=== PATIENT | male | born 1980 | race Two or more races ===

== ENCOUNTER 2016-05-01 12:49 | Emergency (ER) | payer OTHER ==
[2016-05-01 13:02] VITALS: BP 129/73; PULSE 105; TEMP 98.4; BMI 30.4
--- NOTE | 2016-05-01 15:36 | PDOC ---
History of Present Illness - General Chief Complaint: Pain Stated Complaint: INSOMNIA Time Seen by Provider: 05/01/16 14:11 History Source: Patient Exam Limitations: No Limitations - History of Present Illness Initial Comments: Chief complaint: Insomnia History of present illness: Patient is a 35-year-old male with a history of asthma, anxiety/depression here today complaining of difficulty sleeping sometimes difficulty falling asleep and staying asleep will at times during the Middle night and cannot get back to sleep for approximately one year. He reports that he had seen somebody for mental health for anxiety depressions and panic attacks while he was living in [place] and was given a prescription for Zoloft 25 mg and hydroxyzine for anxiety and panic attacks patient however has not started on any of this medication. Patient reports that he is fearful about taking meds and really did not want to start on rereading potential side effects. Patient reports that he feels anxious on edge, with decreased concentration irritability on most days. Patient also reports having a history of having panic attacks with chest tightness choking sensation shaking and sweating and feeling of impending doom. Patient denies any previous psychiatric hospitalizations. He reports that he first saw mental health only once in [place] and was supposed to go back for counseling but did not. Patient reports that he also feels sad on most days with decreased energy and anhedonia for one ear. He denies any suicidal ideations or any suicide attempts. Patient denies any symptoms of psychosis no auditory or visual hallucinations. Patient denies any drug or alcohol use except for smoking weed a few weeks ago that made him feel more anxious. He is also requesting a pump for his asthma needs albuterol that he has been using 3 times a day recently. He is asking for a pump that he can use that will decrease the need for him to use albuterol as much. Timing/Duration: other (intermittent for one year) Severity: moderate Associated Symptoms: anxiety, impaired concentration (intermittent for one year) , insomnia Past History - Past Medical History Allergies/Adverse Reactions: Allergies No Known Allergies Allergy (Verified 05/01/16 12:56) Home Medications: Ambulatory Orders Albuterol Sulfate Inhaler - [Ventolin HFA Inhaler -] 2 inh PO Q4H PRN #1 inh 03/07 Fluticasone/Salmeterol [Advair Hfa 115-21 Mcg Inhaler] 1 inh PO BID #1 inhaler MDD w 05/01/16 Psychosocial History: Yes: anxiety, depression, panic attacks - Family History Significant Family History: Yes: asthma - Social History Smoking Status: Current every day smoker Number of Cigarettes Per Day: 7 Drug Use: cocaine (years ago ), marijuana (few weeks ago ) *Review of Systems - Review of Systems Able to Perform ROS?: Yes Constitutional: No: Symptoms Reported HEENTM: No: Symptoms Reported Respiratory: Yes: Shortness of Breath, Wheezing (intermittent ) Cardiac (ROS): Yes: Chest Tightness (intermittent none today). No: Chest Pain, Lightheadedness, Palpitations (today ) ABD/GI: No: Symptoms Reported : No: Symptoms Reported Musculoskeletal: No: Symptoms Reported Integumentary: No: Symptoms Reported Neurological: No: Symptoms reported Psychiatric: Yes: Anxiety, Depression, Stressors, Sleep Pattern Change (for one year ) *Physical Exam - Vital Signs Last Vital Signs Temp Pulse Resp BP Pulse Ox 98.4 F 105 H 20 129/73 98 05/01/16 12:52 05/01/16 12:52 05/01/16 12:52 05/01/16 12:52 05/01/16 12:52 - Physical Exam General Appearance: Yes: Appropriately Dressed HEENT: positive: Normal ENT Inspection Neck: negative: Lymphadenopathy (R), Lymphadenopathy (L) Respiratory/Chest: positive: Lungs Clear, Normal Breath Sounds. negative: Chest Tender, Respiratory Distress Cardiovascular: positive: Regular Rhythm, Regular Rate, S1, S2 Comments:: 05/01/16 20:30, cooperative, good eye contact, fully dressed, mood;"anxious, depressed" affect: slightly constricted, denies suicidal or homicidal ideations , thoughts well organized, insight/judgement fair, denies obsessions, compulsions, speech normal rate/volume, gait unimpaIRED Integumentary: positive: Normal Color Neurologic: positive: Alert, Responsive *DC/Admit/Observation/Transfer Diagnosis at time of Disposition: Anxiety, Panic attack, Asthma Depression Qualifiers: Depression Type: unspecified Qualified Code(s): F32.9 - Major depressive disorder, single episode, unspecified Insomnia Qualifiers: Insomnia type: unspecified Qualified Code(s): G47.00 - Insomnia, unspecified - Prescriptions Prescriptions: Fluticasone/Salmeterol [Advair Hfa 115-21 Mcg Inhaler] 1 inh PO BID #1 inhaler MDD w Albuterol Sulfate Inhaler - [Ventolin HFA Inhaler -] 2 inh PO Q4H PRN #1 inh PRN Reason: Short Of Breath/Wheezing - Patient Instructions Additional Instructions: Take your medications as previously ordered by mental health from [place] as ordered for anxiety, depression Zoloft and hydroxyzine as ordered for anxiety, panic attacks, insomnia Follow-up with mental health services at: [facility] at [address] [place], [place] [phone] [facility] services Center at [address] [place] [address] or [facility] and [address] [place] [address], , or [facility] at [address] [place] [address] Follow up at [facility] from her primary care services at Return to emergency room if you're having any suicidal thoughts or thoughts of harming anyone else or any difficulty breathing Patient voiced understanding of discharge instructions and all questions were answered
== END 2016-05-01 15:56 | disposition home or self-care (01) ==
LOC: JERFT 12:49 → JER 12:49 → JERFT 15:56
DX: F41.0 Panic disorder [episodic paroxysmal anxiety] (principal); F41.9 Anxiety disorder, unspecified; F32.9 Major depressive disorder, single episode, unspecified; F17.210 Nicotine dependence, cigarettes, uncomplicated
CPT/HCPCS: 99281-25

== ENCOUNTER 2016-05-12 07:32 | Emergency (ER) | payer OTHER ==
[2016-05-12 07:44] VITALS: TEMP 98; BMI 30.4
--- NOTE | 2016-05-12 08:11 | PDOC ---
[id number] No Limitations - History of Present Illness Initial Comments: 05/12/16 08:48 The patient is a 35 year old male, with a significant past medical history of asthma, anxiety, depression (noncompliant w/ medications) and substance abuse ( alcohol, marijuana, cocaine), who presents to the emergency department with chest tightness for the past couple of hours. He describes his chest tightness as a pressure. The patient states that over the past couple of weeks, he has become increasingly depressed and reports increased alcohol use. The patient states that he has been awake since yesterday morning and has been drinking since then (rum, beer), with his last drink at approximately 4AM this morning. The patient also admits to smoking marijuana in addition to taking 1 gram of cocaine last night. Pt states he has been off his cocaine for several months and relapsed due to everything that has been happening. The patient denies any suicidal thoughts or ideations. The patient denies fever, chills, diaphoresis, nausea or vomiting. He is requesting detox. Allergies: None reported. Past Surgical History: None reported. Social History: Current everyday smoker. Reports daily alcohol use. See HPI. PCP: Dr. Fong <Bernie Durham - Last Filed: 05/12/16 08:50> <Juan Manuel Mariano - Last Filed: 05/16/16 09:22> - General Chief Complaint: Psychiatric Stated Complaint: DEPRESSION Time Seen by Provider: 05/12/16 08:10 Past History <Bernie Durham - Last Filed: 05/12/16 08:50> - Past Medical History Asthma: Yes Psychiatric Problems: Yes (ANXIETY/PANIC ATTACKS) - Psycho/Social/Smoking Cessation Hx Anxiety: Yes Suicidal Ideation: No Smoking History: Current every day smoker Have you smoked in the past 12 months: Yes Number of Cigarettes Smoked Daily: 20 Information on smoking cessation initiated: No 'Breaking Loose' booklet given: 08/12/15 Hx Alcohol Use: Yes Drug/Substance Use Hx: Yes Substance Use Type: Alcohol, Cocaine, Marijuana Hx Substance Use Treatment: Yes <Juan Manuel Mariano - Last Filed: 05/16/16 09:22> - Past Medical History Allergies/Adverse Reactions: Allergies Allergy/AdvReac Type Severity Reaction Status Date / Time No Known Allergies Allergy Verified 05/12/16 07:44 Home Medications: Ambulatory Orders Albuterol Sulfate Inhaler - [Ventolin HFA Inhaler -] 2 inh PO Q4H PRN #1 inh 03/07 Fluticasone/Salmeterol [Advair Hfa 115-21 Mcg Inhaler] 1 inh PO BID #1 inhaler MDD w 05/01/16 Review of Systems - Review of Systems Able to Perform ROS?: Yes Comments:: 05/12/16 08:49 CONSTITUTIONAL: No reported: Fever, Chills, Diaphoresis, Generalized Weakness, Malaise, Loss of Appetite HEENT: No reported: Rhinorrhea, Nasal Congestion, Throat Pain, Throat Swelling, Difficulty Swallowing, Mouth Swelling, Ear Pain, Eye Pain, Visual Changes CARDIOVASCULAR: Reported: +Chest Tightness, Palpitations, Lightheadedness No reported: Syncope, Irregular Heart Rate, Peripheral Edema RESPIRATORY: No reported: Cough, Shortness of Breath, SOB with Exertion, Orthopnea, Wheezing , Stridor, Hemoptysis GASTROINTESTINAL: No reported: Abdominal pain, Abdominal Distension, Nausea, Vomiting, Diarrhea, Constipation, Melena, Hematochezia GENITOURINARY: No reported: Dysuria, Frequency, Urgency, Hesitancy, Flank Pain, Genital Pain MUSCULOSKELETAL: No reported: Myalgia, Arthralgia, Joint Swelling, Back pain, Neck Pain SKIN: No reported: Rash, Itching, Pallor HEMATOLOGIC/IMMUNOLOGIC: No reported: Easy Bleeding, Easy Bruising, Lymphadenopathy, Frequent infections ENDOCRINE: No reported: Unexplained Weight Gain, Unexplained Weight Loss, Heat Intolerance , Cold Intolerance NEUROLOGIC: No reported: Headache, Focal Weakness, Paresthesias, Vertigo, Lightheadedness, Unsteady Gait, Seizure, Mental Status Changes, Incontinence PSYCHIATRIC: Reported: +Anxiety, Insomnia No reported: Depression <DaleBernie Foss - Last Filed: 05/12/16 08:50> *Physical Exam - Vital Signs Last Vital Signs Temp Pulse Resp BP Pulse Ox 98 F 120 H 18 152/85 98 05/12/16 07:41 05/12/16 07:41 05/12/16 07:41 05/12/16 07:41 05/12/16 07:41 - Physical Exam Comments: 05/12/16 08:50 GENERAL: The patient is awake, alert, and fully oriented, Nontoxic - in no acute distress. HEAD: Normocephalic, atraumatic. EYES: extraocular movements intact, sclera anicteric, conjunctiva clear. ENT: Normal voice, Moist mucous membranes. NECK: Normal range of motion, supple. LUNGS: Breath sounds equal, clear to auscultation bilaterally. No wheezes, no rhonchi, no rales. HEART: Tachycardic without murmur, rub or gallop. ABDOMEN: Soft, nontender, normoactive bowel sounds. No guarding, no rebound. No CVA tenderness. EXTREMITIES: Normal range of motion, no edema. No clubbing or cyanosis. No cords , erythema, or tenderness. NEUROLOGICAL: No facial asymmetry. Normal speech. PSYCH: Normal mood, normal affect. SKIN: Warm, dry, normal turgor. <Bernie Durham - Last Filed: 05/12/16 08:50> - Vital Signs Last Vital Signs Temp Pulse Resp BP Pulse Ox 98 F 120 H 18 152/85 98 05/12/16 07:41 05/12/16 07:41 05/12/16 07:41 05/12/16 07:41 05/12/16 07:41 <Juan Manuel Mariano - Last Filed: 05/16/16 09:22> Heart Score/ECG Review - ECG Impressions Comment:: 05/12/16 10:05 Twelve-lead EKG was performed and reviewed by me. There is normal sinus rhythm with a rate of 103 The axis is normal. The intervals are normal. There is normal R wave progression There are no ST or T wave abnormalities. Impression: Sinus tachycardia <Juan Manuel Mariano - Last Filed: 05/16/16 09:22> ED Treatment Course - LABORATORY CBC & Chemistry Diagram: 05/12/16 08:27 <Bernie Durham - Last Filed: 05/12/16 08:50> - LABORATORY CBC & Chemistry Diagram: 05/12/16 08:27 05/12/16 10:24 <Juan Manuel Mariano - Last Filed: 05/16/16 09:22> Medical Decision Making - Medical Decision Making 05/12/16 08:21 35-year-old gentleman history of anxiety, depression, history of substance abuse presents with feeling very anxious, also endorses tachcyardia, mild L sided chest pain s/p using 'almost 1g of cocaine' lats night after being dry for a while. On exam pts exam is noted for tachycardia, and anxiety suspect tachycardia secondary to cocaine intoxication - considered etoh withdrawal but pt not tremulous and not having any fasiculations will obtain trops, ekg, to r/o cociane induced mi will ck labs to r/o anemia, metabolic dernagement will reassess A portion of this note was documented by scribe services under my direction. I have reviewed the details of the note, within reason, and agree with the documentation with the following case summary and management plan written by me 05/12/16 10:04 The patient's blood work is reviewed it is unremarkable, the patient's tox screen is positive for cocaine use. Low-level alcohol on his blood We'll continue to observe the patient's once he feels better will send the patient to detox 05/12/16 13:42 The patient's blood work is unremarkable, troponins negative 2. The patient's heart rate is also normalize his blood pressure is improved. I will discharge patient to [facility] for detox I discussed the physical exam findings, ancillary test results and final diagnoses with the patient. I answered all of the patient's questions. The patient was satisfied with the care received and felt comfortable with the discharge plan and treatment plan. The patient will call their primary care physician within 24 hours to arrange follow-up and will return to the Emergency Department with any new, persistent or worsening symptoms. <Juan Manuel Mariano - Last Filed: 05/16/16 09:22> *DC/Admit/Observation/Transfer - Attestations Scribe Attestion: 05/12/16 08:29 Documentation prepared by Bernie Durham, acting as pediatrician/medical doctor for Juan Manuel Mariano MD. <Bernie Durham - Last Filed: 05/12/16 08:50> - Discharge Dispostion Admit: No <Juan Manuel Mariano - Last Filed: 05/16/16 09:22> Diagnosis at time of Disposition: Cocaine abuse, Anxiety - Discharge Dispostion Disposition: HOME Condition at time of disposition: Improved - Referrals Referrals: Wong Fong MD [Primary Care Provider] - - Patient Instructions Printed Discharge Instructions: DI for Cocaine Use Disorder, DI for Chest Pain Additional Instructions: Return to the emergency department immediately with ANY new, persistent or worsening symptoms. You MUST call and follow up with your doctor tomorrow for further evaluation of your symptoms. Results were discussed with you. Please make sure your doctor reviews the results of your emergency evaluation. If you had any xrays during your visit, it was read preliminarily by myself, a Radiologist will review it and if there are any additional findings we will call you.
[2016-05-12] MEDS ORDERED: LORAZEPAM CARPU-JECT 2 MG/ML DISP.SYRIN IVPUSH ONE (08:20)
[2016-05-12] MEDS ORDERED: SODIUM CHLORIDE 1,000 ML IV ONE (08:20)
[2016-05-12] MEDS ORDERED: LORAZEPAM CARPU-JECT 2 MG/ML DISP.SYRIN ONE (08:37)
[2016-05-12 08:50] LABS: BASOPHIL 0.6 % (0-2.0); EOSINOPHIL 0.3 % (0-4.5); MCH 29.6 pg (25.7-33.7); MCHC 33.7 g/dl (32.0-35.9); MEAN CELL VOLUME 87.9 fl (80-96); MEAN PLT VOLUME 8.6 fl (7.5-11.1); NEUTROPHILS 65.1 % (42.8-82.8); PLATELET COUNT 282 K/MM3 (134-434); RDW 14.8 % (11.9-15.9); WHITE BLOOD COUNT 9.6 K/mm3 (4.0-10.0)
[2016-05-12 09:13] LABS: TROPONIN I < 0.02 ng/ml (0.00-0.05)
[2016-05-12 09:14] LABS: URINE APPEARANCE CLEAR; URINE BILIRUBIN NEGATIVE (NEGATIVE); URINE BLOOD NEGATIVE (NEGATIVE); URINE COLOR COLORLESS; URINE GLUCOSE (UA) NEGATIVE (NEGATIVE); URINE KETONE NEGATIVE (NEGATIVE); URINE LEUK ESTERASE NEGATIVE (NEGATIVE); URINE NITRITE NEGATIVE (NEGATIVE); URINE PROTEIN NEGATIVE (NEGATIVE); URINE UROBILINOGEN NEGATIVE E.U./dl (0.2-1.0)
[2016-05-12 09:28] LABS: URINE MARIJUANA THC NEGATIVE ng/ml (CUTOFF=50)
[2016-05-12 11:21] LABS: ALBUMIN 4.2 g/dl (3.4-5.0); ALK PHOS 91 U/L (45-117); ANION GAP 16 (8-16); BILIRUBIN,TOTAL 0.3 mg/dL (0.2-1.0); CO2 21 mmol/L (21-32); GLUCOSE,RANDOM 98 mg/dL (74-106); SGOT/AST 26 U/L (15-37); SGPT/ALT 37 U/L (12-78); TOT PROT 7.6 g/dl (6.4-8.2)
[2016-05-12 13:25] LABS: TROPONIN I < 0.02 ng/ml (0.00-0.05)
[2016-05-12 13:50] VITALS: BP 139/74; PULSE 75
--- NOTE | 2016-05-12 23:23 | EKG ---
Test Reason : Blood Pressure : / mmHG Vent. Rate : 103 BPM Atrial Rate : 103 BPM P-R Int : 130 ms QRS Dur : 088 ms QT Int : 326 ms P-R-T Axes : 072 040 045 degrees QTc Int : 427 ms SINUS TACHYCARDIA MINIMAL VOLTAGE CRITERIA FOR LVH, MAY BE NORMAL VARIANT BORDERLINE ECG WHEN COMPARED WITH ECG OF 25-AUG-2015 07:20, NO SIGNIFICANT CHANGE WAS FOUND Confirmed by DALE RAO MD ([id number]) on 05/12/2016 11:22:43 PM Referred By: Confirmed By:DALE RAO MD
== END 2016-05-12 13:50 | disposition home or self-care (01) ==
LOC: JER 07:32
PROC: 3E033NZ Introduction of Analgesics, Hypnotics, Sedatives into Peripheral Vein, Percutaneous Approach (ICD-10-PCS; principal; 2016-05-12)
DX: F14.10 Cocaine abuse, uncomplicated (principal); F10.10 Alcohol abuse, uncomplicated; F41.9 Anxiety disorder, unspecified
CPT/HCPCS: 36415; 80053; 80307; 81003; 82550; 82553; 84484; 85025; 87491; 87591; 93005; 93010; 96374; 99282-25